=== PATIENT | female | born 1995 | race Caucasian/White ===

== ENCOUNTER 2019-01-20 00:12 | Emergency (ER) | payer OTHER, MEDICAID ==
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
[2019-01-20] MEDS ORDERED: DIPH,PERTUS(ACELL)TETVAC-LF 0.5 ML VIAL IM ONE (01:24)
[2019-01-20] MEDS ORDERED: KETOROLAC 30 MG/ML 1 ML VIAL IM STA (01:24)
[2019-01-20] MEDS ORDERED: DIAZEPAM 5 MG TAB PO STA (01:24)
--- NOTE | 2019-01-20 01:27 | XR ---
EXAM: XR Left Wrist Complete, 3 or More Views CLINICAL HISTORY: ITS.REASON XR Reason: Pain TECHNIQUE: Frontal, lateral and oblique views of the left wrist. COMPARISON: No relevant prior studies available. FINDINGS: Bones/joints: Unremarkable. No acute fracture. No dislocation. Soft tissues: Unremarkable. No radiopaque foreign body. IMPRESSION: No visualized fracture.
--- NOTE | 2019-01-20 01:48 | XR ---
EXAM: XR Chest, 2 Views CLINICAL HISTORY: ITS.REASON XR Reason: Pain TECHNIQUE: Frontal and lateral views of the chest. COMPARISON: No relevant prior studies available. FINDINGS: Lungs: Unremarkable. No consolidation. Pleural space: Unremarkable. No pneumothorax. Heart: Unremarkable. No cardiomegaly. Mediastinum: Unremarkable. Bones/joints: Unremarkable. IMPRESSION: No acute radiographic findings.
[2019-01-20 02:57] VITALS: BP 94/58; PULSE 68; RESP 18; TEMP 98
== END 2019-01-20 02:57 | disposition home or self-care (01) ==
LOC: EC 00:12
DX: T23.262A Burn of second degree of back of left hand, initial encounter (principal); S80.12XA Contusion of left lower leg, initial encounter; F17.200 Nicotine dependence, unspecified, uncomplicated; Z23 Encounter for immunization; V43.52XA Car driver injured in collision with other type car in traffic accident, initial encounter; Y92.411 Interstate highway as the place of occurrence of the external cause
CPT/HCPCS: 73110; 71046; 90715; 99284; 96372; 90471; J1885

== ENCOUNTER → 2020-04-09 | Outpatient (CLI) | payer MEDICAID | END | disposition home or self-care (01) | LOC: LABWHC1 07:21 | PROVIDERS: ATTEND Family Medicine | DX: Z20.828 Contact with and (suspected) exposure to other viral communicable diseases (principal) | CPT/HCPCS: 87635 ==

== ENCOUNTER 2021-07-06 01:42 | Emergency (ER) | payer MEDICAID ==
[2021-07-06 01:55] VITALS: BP 121/76; PULSE 95; RESP 20; TEMP 98.8
[2021-07-06 02:41] LABS: Appearance,Urine Turbid (Clear); Bacteria,Urine Rare /hpf; Bilirubin,Urine Negative (Negative); Blood,Urine Large (Negative); Color,Urine Dark Brown; Glucose,Urine (UA) Negative (Negative); Ketones,Urine Negative (Negative); Leukocyte Esterase,Urine Large (Negative); Mucus,Urine Many /hpf; Nitrite,Urine Negative (Negative); Protein,Urine 3+ (Negative); RBC,Urine >182 /hpf (0-5); Specific Gravity,Urine 1.022 (1.001-1.035); Squamous Epithelial Cell,Urine 14 /hpf (0-4); Urobilinogen,Urine <2.0 mg/dL (<2.0); WBC,Urine >182 /hpf (0-5)
[2021-07-06] MEDS ORDERED: SULFAMETHOX-TMP 800-160MG 1 EACH TAB PO STA (04:05)
[2021-07-06] MEDS ORDERED: PHENAZOPYRIDINE 100 MG TAB PO STA (04:05)
--- NOTE | 2021-07-06 04:07 | ED ---
Abdominal Pain HPI - General Chief Complaint: Abdominal Pain Stated Complaint: Abdominal Pain, dizziness Time Seen by Provider: 07/06/21 03:53 Source: patient Mode of arrival: ambulatory Limitations: no limitations - History of Present Illness MD Complaint: abdominal pain Onset/Timin -: days(s) Location: suprapubic Radiation: none Migration to: no migration Severity: mild Quality: cramping Consistency: constant Improves With: nothing Worsens With: other (Urination) Associated Symptoms: dysuria, hematuria - Related Data Previous Rx's Medication Instructions Recorded Ibuprofen [Motrin] 600 mg PO Q6HR PRN #30 tab 01/20/19 Methocarbamol [Robaxin-750] 750 mg PO TID #30 tablet 01/20/19 Phenazopyridine [Pyridium] 100 mg PO TID #6 tablet 07/06/21 Sulfamethox-Tmp 800-160Mg [Bactrim 1 each PO Q12HR #6 tab 07/06/21 Ds] Allergies Allergy/AdvReac Type Severity Reaction Status Date / Time No Known Allergies Allergy Verified 07/06/21 01:55 Review of Systems ROS Statement: Those systems with pertinent positive or pertinent negative responses have been documented in the HPI. ROS Other: All systems not noted in ROS Statement are negative. Constitutional: Denies: fever, chills Respiratory: Denies: cough, dyspnea Cardiovascular: Denies: chest pain, palpitations Gastrointestinal: Reports: abdominal pain. Denies: nausea, vomiting, diarrhea, constipation, melena, hematochezia Genitourinary: Reports: dysuria, frequency, hematuria. Denies: discharge, abnormal menses Musculoskeletal: Denies: back pain Skin: Denies: rash Neurological: Denies: headache, weakness, numbness Past Medical History Past Medical History: No Reported History History of Any Multi-Drug Resistant Organisms: None Reported Past Surgical History: No Surgical Hx Reported Past Psychological History: Depression Smoking Status: Never smoker, Vaper Past Alcohol Use History: Occasional Past Drug Use History: None Reported General Exam Limitations: no limitations General appearance: alert, in no apparent distress Head exam: Present: atraumatic, normocephalic Respiratory exam: Present: normal lung sounds bilaterally. Absent: respiratory distress, wheezes, rales, rhonchi, stridor Cardiovascular Exam: Present: regular rate, normal rhythm, normal heart sounds. Absent: systolic murmur, diastolic murmur, rubs, gallop GI/Abdominal exam: Present: soft. Absent: distended, tenderness, guarding, rebound, rigid, mass, pulsatile mass, hernia Back exam: Present: normal inspection. Absent: CVA tenderness (R), CVA tenderness (L) Neurological exam: Present: alert Skin exam: Present: warm, dry, intact, normal color. Absent: rash Course Vital Signs 07/06/21 01:53 Temperature 98.8 F Pulse Rate 95 Respiratory 20 Rate Blood Pressure 121/76 O2 Sat by Pulse 96 Oximetry Medical Decision Making - Lab Data Lab Results 07/06/21 07/06/21 Range/Units 02:05 02:05 Urine Color Dark Brown Urine Appearance Turbid H (Clear) Urine pH 6.0 (5.0-8.0) Ur Specific [place] 1.022 (1.001-1.035) Urine Protein 3+ H (Negative) Urine Glucose (UA) Negative (Negative) Urine Ketones Negative (Negative) Urine Blood Large H (Negative) Urine Nitrite Negative (Negative) Urine Bilirubin Negative (Negative) Urine Urobilinogen <2.0 (<2.0) mg/dL Ur Leukocyte Esterase Large H (Negative) Urine RBC >182 H (0-5) /hpf Urine WBC >182 H (0-5) /hpf Ur Squamous Epith Cells 14 H (0-4) /hpf Urine Bacteria Rare H (None) /hpf Urine Mucus Many H (None) /hpf Urine HCG, Qual Not Detected (Not Detectd) Disposition Clinical Impression: Urinary tract infection Disposition: HOME SELF-CARE Condition: Good Instructions (If sedation given, give patient instructions): Urinary Tract Infection in Women (ED) Prescriptions: Sulfamethox-Tmp 800-160Mg [Bactrim Ds] 1 each PO Q12HR #6 tab Phenazopyridine [Pyridium] 100 mg PO TID #6 tablet Is patient prescribed a controlled substance at d/c from ED?: No Referrals: None,Stated [Primary Care Provider] - 1-2 days
== END 2021-07-06 04:42 | disposition home or self-care (01) ==
LOC: EC 01:42
DX: N39.0 Urinary tract infection, site not specified (principal); F32.9 Major depressive disorder, single episode, unspecified; F17.290 Nicotine dependence, other tobacco product, uncomplicated
CPT/HCPCS: 81001; 81025; 87086; 99284

== ENCOUNTER → 2021-07-21 | Outpatient (CLI) | payer MEDICAID ==
[2021-07-21 21:18] LABS: HCT 41.5 % (37.2-46.3); MCH 31.5 pg (27.0-32.0); MCHC 33.7 g/dL (32.0-37.0); MCV 93.5 fL (80.0-97.0); Mean Platelet Volume 9.7 fL (9.5-12.2); Platelet Count 309 X 10*3/uL (140-440); RBC 4.44 X 10*6/uL (4.10-5.20); WBC 5.55 X 10*3/uL (4.50-10.00)
[2021-07-23 00:25] LABS: African American GFR (CKD) 118.8 (60.0-200.0); Albumin 4.5 g/dL (3.80-4.90); Albumin/Globulin Ratio 1.67 (1.60-3.17); Anion Gap 14.6 mmol/L (4.00-12.00); BUN/Creat Ratio 12.5 Ratio (12.00-20.00); Calcium 9.9 mg/dL (8.7-10.3); Carbon Dioxide 20.4 mmol/L (21.6-31.8); Globulin 2.7 g/dL (1.6-3.3); Non-African American GFR(CKD) 102.5 (60.0-200.0); Potassium 4.3 mmol/L (3.5-5.5); Total Protein 7.2 g/dL (6.2-8.2)
[2021-07-23 01:08] LABS: Total Bilirubin 0.6 mg/dL (0.3-1.2)
== END | disposition home or self-care (01) ==
LOC: LABWHC1 14:09
PROVIDERS: ATTEND Internal Medicine
DX: E55.9 Vitamin D deficiency, unspecified (principal); F41.9 Anxiety disorder, unspecified; M79.10 Myalgia, unspecified site
CPT/HCPCS: 36415; 80053; 82306; 82607; 82746; 84443; 85027

== ENCOUNTER 2021-12-22 17:42 | Emergency (ER) | payer BC, MEDICAID ==
[2021-12-22] MEDS ORDERED: IBUPROFEN 400 MG TAB PO STA (18:03)
[2021-12-22] MEDS ORDERED: ACETAMINOPHEN TAB 500 MG TAB PO STA (18:03)
[2021-12-22 18:12] VITALS: BP 108/72; PULSE 91; RESP 16; TEMP 97.6
--- NOTE | 2021-12-22 18:50 | ED ---
Fall HPI - General Chief Complaint: Fall Stated Complaint: Fall/Head Injury Time Seen by Provider: 12/22/21 17:53 Source: patient Mode of arrival: wheelchair - History of Present Illness Initial Comments: This is a pleasant 26-year-old female presents to emergency department after slipping down her steps and falling. In the process twisting her ankle and striking the back of her head. Patient also complaining of some pain to the right lumbar paraspinal area. There is no loss of consciousness, she denies any vision or hearing disturbances. No numbness or tingling. No neck pain. Recalls the entire event. No nausea or vomiting. Not on blood thinners. No history of blood dyscrasias. Patient was sent by urgent care for evaluation. Patient mostly complaining of pain to the anterior aspect of her left ankle. Pain is exacerbated by movement of the ankle as well as palpation. Patient is able to ambulate. Mild increase of pain with moving the lumbar spine. - Related Data Previous Rx's Medication Instructions Recorded Ibuprofen [Motrin] 600 mg PO Q6HR PRN #30 tab 01/20/19 Methocarbamol [Robaxin-750] 750 mg PO TID #30 tablet 01/20/19 Phenazopyridine [Pyridium] 100 mg PO TID #6 tablet 07/06/21 Sulfamethox-Tmp 800-160Mg [Bactrim 1 each PO Q12HR #6 tab 07/06/21 Ds] Acetaminophen [Tylenol] 500 mg PO Q4-6H PRN #24 tab 12/22/21 Ibuprofen [Motrin] 600 mg PO Q8HR PRN #30 tab 12/22/21 Allergies Allergy/AdvReac Type Severity Reaction Status Date / Time No Known Allergies Allergy Verified 12/22/21 17:47 Review of Systems ROS Statement: Those systems with pertinent positive or pertinent negative responses have been documented in the HPI. ROS Other: All systems not noted in ROS Statement are negative. Past Medical History Past Medical History: No Reported History Additional Past Medical History / Comment(s): borderline personality disorder History of Any Multi-Drug Resistant Organisms: None Reported Past Surgical History: No Surgical Hx Reported Past Psychological History: ADD/ADHD, Anxiety, Depression, PTSD Smoking Status: Former smoker, Vaper Past Alcohol Use History: Rare Past Drug Use History: None Reported General Exam - General Exam Comments Initial Comments: Patient in no distress, does not appear to be ill or toxic. Limitations: no limitations General appearance: alert, in no apparent distress Head exam: Present: atraumatic, normocephalic, normal inspection, other (No evidence of significant head injury. No step-off. No abrasion. No laceration. No crepitus.) Eye exam: Present: normal appearance, PERRL, EOMI. Absent: scleral icterus, conjunctival injection, periorbital swelling ENT exam: Present: normal exam, normal oropharynx, mucous membranes moist. Absent: mucous membranes dry Neck exam: Present: normal inspection, full ROM. Absent: tenderness, meningismus, lymphadenopathy Respiratory exam: Present: normal lung sounds bilaterally. Absent: respiratory distress, wheezes, rales, rhonchi, stridor Cardiovascular Exam: Present: regular rate, normal rhythm, normal heart sounds. Absent: systolic murmur, diastolic murmur, rubs, gallop, clicks GI/Abdominal exam: Present: soft, normal bowel sounds. Absent: distended, tenderness, guarding, rebound, rigid Extremities exam: Present: normal inspection, full ROM, normal capillary refill, other (Patient has full range of motion regarding left ankle. There is a superficial abrasion. No crepitus. No other break in skin integrity. Pulses intact. Capillary refill less than 2 seconds). Absent: tenderness, pedal edema, joint swelling, calf tenderness Back exam: Present: normal inspection, full ROM, tenderness, paraspinal tenderness, other (Minimal tenderness to the right lumbar paraspinal area. No midline tenderness. No break in skin integrity. No rash or lesion. No crepitus. Range of motion essentially full.). Absent: CVA tenderness (R), CVA tenderness (L), muscle spasm, vertebral tenderness, rash noted Neurological exam: Present: alert, oriented X3, CN II-XII intact, normal gait Expanded Patient oriented to: Present: person Speech: Present: fluid speech, expressive aphasia, anomia Cerebellar function: Finger to Nose: Normal, Heel to Valero: Normal, Romberg: Normal Eye Response: (4) open spontaneously Motor Response: (6) obeys commands Verbal Response: (5) oriented Jose Roberto Total: 15 Psychiatric exam: Present: normal affect, normal mood Skin exam: Present: warm, dry, intact, normal color. Absent: rash Course Vital Signs 12/22/21 12/22/21 17:47 18:10 Temperature 98.7 F 97.6 F Pulse Rate 100 91 Respiratory 20 16 Rate Blood Pressure 134/76 108/72 O2 Sat by Pulse 100 100 Oximetry Medical Decision Making - Medical Decision Making No CT of the head indicated per [place] CT/C-spine rules. Patient was told to return to the ER for any signs or symptoms worsen. Told to return immediately if any other problems arise. All questions answered. Treatment plan discussed. Patient in agreement Disposition Clinical Impression: Fall, Closed head injury, Contusion of left ankle, Abrasion, left ankle, initial encounter, Contusion of lower back Disposition: HOME SELF-CARE Condition: Good Instructions (If sedation given, give patient instructions): Head Injury (ED), Contusion in Adults (ED), Abrasion (ED) Additional Instructions: Follow-up with your regular physician as directed. Return to the ER immediately if any symptoms worsen, new symptoms arise, or any other problems develop. Prescriptions: Ibuprofen [Motrin] 600 mg PO Q8HR PRN #30 tab PRN Reason: Pain Acetaminophen [Tylenol] 500 mg PO Q4-6H PRN #24 tab PRN Reason: Pain Is patient prescribed a controlled substance at d/c from ED?: No Referrals: Aneudy James MD [Primary Care Provider] - 12/26/21 Time of Disposition: 19:20
--- NOTE | 2021-12-22 19:09 | XR ---
EXAMINATION TYPE: XR lumbar spine 2 or 3V DATE OF EXAM: 12/22/2021 6:40 PM INDICATION: Patient age:Female; 26 years old; Reason for study: Low back injury/pain; COMPARISON: None TECHNIQUE: The lumbar spine was examined in 2 views. FINDINGS: No evidence of any acute osseous pathology. No evidence of loss of vertebral body height i s seen. There is normal alignment of the lumbar vertebral bodies. There is moderate stool seen throug hout the abdomen. IMPRESSION: No acute process.
--- NOTE | 2021-12-22 19:12 | XR ---
EXAMINATION TYPE: XR ankle complete LT DATE OF EXAM: 12/22/2021 6:40 PM INDICATION: Patient age:Female; 26 years old; Reason for study: Injury/pain; COMPARISON: None TECHNIQUE: The left ankle is imaged in 3 projections. FINDINGS: There is no evidence of acute osseous pathology. The joint spaces are well-preserved without evidenc e of subluxation or dislocation. Kager's fat pad is intact. Soft tissues are within normal limits. No radiopaque foreign bodies are identified. IMPRESSION: 1. No evidence of acute fracture.
== END 2021-12-22 19:45 | disposition home or self-care (01) ==
LOC: EC 17:42
DX: S90.02XA Contusion of left ankle, initial encounter (principal); S30.0XXA Contusion of lower back and pelvis, initial encounter; S09.90XA Unspecified injury of head, initial encounter; Z87.891 Personal history of nicotine dependence; F32.A Depression, unspecified; F41.9 Anxiety disorder, unspecified; Z79.1 Long term (current) use of non-steroidal anti-inflammatories (NSAID); Z79.899 Other long term (current) drug therapy; W10.9XXA Fall (on) (from) unspecified stairs and steps, initial encounter; X50.1XXA Overexertion from prolonged static or awkward postures, initial encounter
CPT/HCPCS: 72100; 99284

== ENCOUNTER 2022-08-04 16:41 | Emergency (ER) | payer BC, OTHER ==
[2022-08-04 17:07] VITALS: RESP 20
[2022-08-04 17:25] VITALS: BP 117/74; PULSE 100; TEMP 98.9
[2022-08-04] MEDS ORDERED: LIDOCAINE 1% INJ 10MG/ML (20 ML MDV) SQ ONE (17:39)
--- NOTE | 2022-08-04 17:47 | ED ---
Wound/Laceration HPI - General Chief Complaint: Wound/Laceration Stated Complaint: R knee laceration Time Seen by Provider: 08/04/22 17:38 Source: patient, RN notes reviewed, old records reviewed Mode of arrival: ambulatory Limitations: no limitations - History of Present Illness Initial Comments: This is a plesant, well-appearing 26 year old female that presents emergency room with a laceration to her right knee. Patient states that she was carrying a mirror down the stairs and she tripped and fell broke the mirror which caused laceration to her knee. She does have full range of motion. States tetanus shot is up-to-date. She took Motrin prior to arrival. She denies any other injury. -: hour(s) Extremity Location: Right: Knee (3cm laceration) Place: home Patient Tetanus UTD: Yes Context: accidental Associated Symptoms: none Treatments Prior to Arrival: other (motrin) - Related Data Home Medications Medication Instructions Recorded Confirmed Ascorbic Acid [Vitamin C] 1,000 mg PO DAILY 12/22/21 12/22/21 Atomoxetine HCl [Strattera] 60 mg PO DAILY 12/22/21 12/22/21 Cholecalciferol (Vitamin D3) 125 mcg PO DAILY 12/22/21 12/22/21 [Vitamin D3 (125 MCG = 5,000 IU)] Glucosam/Tanvir-Msm1/C/Rd/Bosw 1 tab PO DAILY 12/22/21 12/22/21 [Glucosamine-Chondroitin Tablet] Melatonin 3 mg PO HS PRN 12/22/21 12/22/21 OLANZapine [ZyPREXA] 2.5 mg PO HS 12/22/21 12/22/21 Potassium Gluconate [Potassium 99 mg PO DAILY 12/22/21 12/22/21 Gluconate ER] Vitamin B Complex 1 cap PO DAILY 12/22/21 12/22/21 buPROPion XL [Wellbutrin XL] 450 mg PO DAILY 12/22/21 12/22/21 clonazePAM [KlonoPIN] 0.5 - 1 mg PO BID PRN 12/22/21 12/22/21 norethindrone-e.estradioL-iron 1 tab PO HS 12/22/21 12/22/21 [Key Fe 1.5-30 Tablet] Previous Rx's Medication Instructions Recorded Acetaminophen [Tylenol] 500 mg PO Q4-6H PRN #24 tab 12/22/21 Ibuprofen [Motrin] 600 mg PO Q8HR PRN #30 tab 12/22/21 Allergies Allergy/AdvReac Type Severity Reaction Status Date / Time No Known Allergies Allergy Verified 12/22/21 19:34 Review of Systems ROS Statement: Those systems with pertinent positive or pertinent negative responses have been documented in the HPI. ROS Other: All systems not noted in ROS Statement are negative. Past Medical History Past Medical History: No Reported History Additional Past Medical History / Comment(s): borderline personality disorder History of Any Multi-Drug Resistant Organisms: None Reported Past Surgical History: No Surgical Hx Reported Past Psychological History: ADD/ADHD, Anxiety, Depression, PTSD Smoking Status: Former smoker, Vaper Past Alcohol Use History: Rare Past Drug Use History: None Reported General Exam Limitations: no limitations General appearance: alert, in no apparent distress Head exam: Present: atraumatic, normocephalic, normal inspection Eye exam: Present: normal appearance. Absent: scleral icterus, conjunctival injection Respiratory exam: Present: normal lung sounds bilaterally. Absent: respiratory distress, wheezes, rales, rhonchi, stridor, chest wall tenderness, accessory muscle use Cardiovascular Exam: Present: tachycardia, normal heart sounds Right Hip exam: Present: full ROM. Absent: tenderness Upper Leg exam: Present: full ROM. Absent: tenderness Knee exam: Present: tenderness, abrasion, laceration, full knee extension. Absent: swelling, deformity Lower Leg exam: Present: full ROM. Absent: tenderness, swelling Neurovascular tendon exam: Present: no vascular compromise. Absent: abnormal cap refill, extremity cold to touch, pallor, foot drop Neurological exam: Present: alert, oriented X3 Psychiatric exam: Present: normal affect, normal mood Skin exam: Present: warm, dry, intact, normal color. Absent: cyanosis, diaphoretic, petechiae, pallor Course Vital Signs 08/04/22 08/04/22 17:04 17:21 Temperature 98.5 F 98.9 F Pulse Rate 110 H 100 Respiratory 20 20 Rate Blood Pressure 144/80 117/74 O2 Sat by Pulse 100 99 Oximetry Procedures - Laceration Laceration #1 Consent Obtained: verbal consent Indication: laceration Site: lower extremity (right knee) Description: irregular Depth: simple, single layer Anesthetic Used: lidocaine 1% Anesthesia Technique: local infiltration Pre-repair: irrigated extensively Type of Sutures: nylon Size of Sutures: 4-0 Number of Sutures: 5 Technique: simple, interrupted Patient Tolerated Procedure: well, no complications Medical Decision Making - Medical Decision Making Wound was irrigated with saline. X-ray shows no evidence of foreign body. She does have full range of motion. Wound was approximated with 5 sutures and bacitracin dressing applied. She was directed to have sutures removed in 10 days and return if any signs of infection. She states her tetanus shot is up-to-date. She is agreeable to this plan of care. Case discussed with Dr. Muse. Disposition Clinical Impression: Laceration Disposition: HOME SELF-CARE Condition: Good Instructions (If sedation given, give patient instructions): Care For Your Stitches (ED), Laceration (ED) Additional Instructions: Keep wound clean and put Neosporin bandage on twice a day. Sutures to be removed in 10 days. Return to the emergency room with any new or concerning sym ptoms including signs of infection, redness, drainage or fevers. Is patient prescribed a controlled substance at d/c from ED?: No Referrals: None,Stated [Primary Care Provider] - 1-2 days Time of Disposition: 18:26
--- NOTE | 2022-08-04 18:04 | XR ---
EXAMINATION TYPE: XR knee limited RT DATE OF EXAM: 08/04/2022 COMPARISON: NONE HISTORY: Knee pain TECHNIQUE: 2 views FINDINGS: There is no sign of fracture nor dislocation. Joint spaces are normal. No sign of radiopaqu e foreign body. No sign of joint effusion. IMPRESSION: No radiopaque foreign body seen.
[2022-08-04] MEDS ORDERED: BACITRACIN OINT 1 EACH PACKET TOPICAL ONE (18:23)
== END 2022-08-04 19:03 | disposition home or self-care (01) ==
LOC: EC 16:41
DX: S81.011A Laceration without foreign body, right knee, initial encounter (principal); Z87.891 Personal history of nicotine dependence; W01.110A Fall on same level from slipping, tripping and stumbling with subsequent striking against sharp glass, initial encounter; Y92.009 Unspecified place in unspecified non-institutional (private) residence as the place of occurrence of the external cause
CPT/HCPCS: 73560; 99283; 12002; J2001

== ENCOUNTER → 2024-07-19 | Outpatient (CLI) | payer BC, OTHER ==
[2024-07-20 12:16] LABS: Basophils # (A) 0.02 X 10*3/uL (0.00-0.10); Basophils % (A) 0.2 %; Eosinophils # (A) 0.05 X 10*3/uL (0.04-0.35); Eosinophils % (A) 0.5 %; HCT 39.4 % (37.2-46.3); HGB 13.4 g/dL (12.0-15.0); Lymphocytes # (A) 3.24 X 10*3/uL (0.90-5.00); Lymphocytes % (A) 33.2 %; MCH 31.2 pg (27.0-32.0); MCV 91.8 FL (80.0-97.0); Monocytes % (A) 5.1 %; NRBC Per 100 WBC 0 X 10*3/uL (0.00-0.01); Neutrophils # (A) 5.91 X 10*3/uL (1.80-7.70); Neutrophils % (A) 60.7 %; Platelet Count 404 X 10*3/uL (140-440); RBC 4.29 X 10*6/uL (4.10-5.20); RDW 12.2 % (11.5-14.5); WBC 9.75 X 10*3/uL (4.50-10.00)
[2024-07-22 14:58] LABS: HSV I IgG Interp POSITIVE; HSV II IgG Interp POSITIVE
== END | disposition home or self-care (01) ==
LOC: LABPAT 11:45
PROVIDERS: ATTEND Obstetrics & Gynecology
DX: Z01.812 Encounter for preprocedural laboratory examination (principal); Z11.3 Encounter for screening for infections with a predominantly sexual mode of transmission
CPT/HCPCS: 85025; 86695; 86696

== ENCOUNTER 2024-07-25 06:24 | Day surgery (SDC) | payer BC, OTHER ==
[2024-07-23 16:28] VITALS: BMI 38.4
[~2024-07-25 06:24] MED LIST: LIDOCAINE 1% (10MG/ML) FOR IV START INTRADERMA PRN; Pre Op ABX Message 1 EACH MISC MISCELLANE ONE
[2024-07-25] MEDS ORDERED: MORPHINE SULFATE 2 MG/ML SYRINGE IV PRN (07:00)
[2024-07-25] MEDS: IV FLUID CONTINUATION 1,000 ML IV ONE ×2 (07:13→07:29)
[2024-07-25] MEDS: LACTATED RINGERS 1,000 ML IV SCH (07:15)
--- NOTE | 2024-07-25 07:19 | P.HPOB ---
History of Present Illness H&P Date: 07/25/24 Chief Complaint: family planning 28 year old G0 presents for laparoscopic tubal ligation. Review of Systems All systems: negative Constitutional: Denies chills, Denies fever Eyes: denies blurred vision, denies pain Ears, nose, mouth and throat: Denies headache, Denies sore throat Cardiovascular: Denies chest pain, Denies shortness of breath Respiratory: Denies cough Gastrointestinal: Denies abdominal pain, Denies diarrhea, Denies nausea, Denies vomiting Genitourinary: Denies dysuria, Denies hematuria Musculoskeletal: Denies myalgias Integumentary: Denies pruritus, Denies rash Neurological: Denies numbness, Denies weakness Psychiatric: Denies anxiety, Denies depression Endocrine: Denies fatigue, Denies weight change Past Medical History Past Medical History: Hearing Disorder / Deafness Additional Past Medical History / Comment(s): Hx tremors in whole body in 2021, was on Keto diet, resolved since quit Keto diet. Hx difficulty with speech/motor control issue about 1 1/2 yrs ago, no diagnosis. Tinnitus. History of Any Multi-Drug Resistant Organisms: None Reported Past Surgical History: No Surgical Hx Reported Additional Past Surgical History / Comment(s): [place] teeth extracted. Past Anesthesia/Blood Transfusion Reactions: No Reported Reaction Smoking Status: Former smoker, Vaper - Past Family History Mother Family Medical History: No Reported History Medications and Allergies Home Medications Medication Instructions Recorded Confirmed Type Atomoxetine HCl [Strattera] 80 mg PO HS 07/23/24 07/25/24 History Cholecalciferol [Vitamin D3 (25 25 mcg PO DAILY 07/23/24 07/25/24 History Mcg = 1000 Iu)] Lion's Mark (Unknown Dose) 1 tab PO DAILY 07/23/24 07/25/24 History Magnesium (Unknown Dose) 1 tab PO DAILY 07/23/24 07/25/24 History Melatonin [Melatonin ER] 10 mg PO HS 07/23/24 07/25/24 History Pyridoxine HCl (Vitamin B6) 100 mg PO DAILY 07/23/24 07/25/24 History [Vitamin B-6] buPROPion [Wellbutrin] 100 mg PO 1330 07/23/24 07/25/24 History buPROPion [Wellbutrin] 200 mg PO QAM 07/23/24 07/25/24 History busPIRone HCL 10 mg PO BID 07/23/24 07/25/24 History guanFACINE [Tenex] 1 mg PO HS 07/23/24 07/25/24 History hydrOXYzine HCL 25 mg PO TID PRN 07/23/24 07/25/24 History traZODone HCL 100 mg PO HS 07/23/24 07/25/24 History Allergies Allergy/AdvReac Type Severity Reaction Status Date / Time banana Allergy Itching Verified 07/25/24 06:51 pineapple Allergy Itching Verified 07/25/24 06:51 Exam Osteopathic Statement: *. No significant issues noted on an osteopathic structural exam other than those noted in the History and Physical/Consult. Intake and Output 07/24/24 07/25/24 07/25/24 22:59 06:59 14:59 Other: Weight 95.7 kg Heart: Regular rate and rhythm Lungs: Clear to auscultation bilaterally Abdomen: Soft, nontender Extremities: Negative Homans sign Assessment and Plan (1) Family planning Current Visit: Yes Status: Acute Code(s): Z30.09 - ENCOUNTER FOR OTH GENERAL CNSL AND ADVICE ON CONTRACEPTION SNOMED Code(s): 994515341 Plan: 1. Laparoscopic tubal ligation
[2024-07-25] MEDS: ONDANSETRON 4 MG/2 ML VIAL IVP ONE (07:22)
[2024-07-25] MEDS: DEXAMETHASONE SOD PHOSPHATE 4 MG/ML 1 ML VIAL IV ONE (07:22)
[2024-07-25] MEDS ORDERED: PROPOFOL 10 MG/ML 20 ML VIAL IV ONE (07:25)
[2024-07-25] MEDS ORDERED: ACETAMINOPHEN IV (For NPO) 1,000 MG/100 ML VIAL ONE (07:25)
[2024-07-25] MEDS ORDERED: SUCCINYLCHOLINE CHLORIDE 200 MG/10 ML VIAL IV ONE (07:25)
[2024-07-25] MEDS ORDERED: ROCURONIUM 10 MG/ML (5 ML VIAL) IV ONE (07:25)
[2024-07-25] MEDS ORDERED: SUGAMMADEX SODIUM 200 MG/2 ML SDV IV ONE (07:25)
[2024-07-25] MEDS ORDERED: MIDAZOLAM 2 MG/2 ML VIAL ONE (07:25)
[2024-07-25] MEDS: MIDAZOLAM 2 MG/2 ML VIAL IV PRN (07:25)
[2024-07-25] MEDS ORDERED: LIDOCAINE 1% INJ 10MG/ML (20 ML MDV) ONE (07:25)
[2024-07-25] MEDS ORDERED: KETAMINE HCL IN 0.9 % NACL 50 MG/5 ML SYRINGE ONE (07:25)
[2024-07-25] MEDS: FAMOTIDINE 20 MG/2 ML VIAL IVP ONE (07:25)
[2024-07-25] MEDS ORDERED: KETOROLAC 15 MG/ML 1 ML VIAL ONE (07:25)
[2024-07-25] MEDS: BUPIVACAINE (PF) 0.25% 30 ML VIAL SQ ONE ×3 (07:47→08:00)
[2024-07-25] MEDS: LACTATED RINGERS 1,000 ML IV ONE (08:07)
--- NOTE | 2024-07-25 08:22 | P.OP ---
Date of Procedure: 07/25/24 Preoperative Diagnosis: 1. family planning Postoperative Diagnosis: 1. family planning Procedure(s) Performed: laproscopic tubal ligation Anesthesia: RADAMES Surgeon: Shelbie Solitario Estimated Blood Loss (ml): 3 IV fluids (ml): 400 Urine output (ml): 10 Pathology: none sent Condition: stable Disposition: PACU Operative Findings: normal uterus, tubes and ovaries Description of Procedure: Patient was taken to the operating room where general anesthesia was obtained without difficulty. She was prepped and draped in normal sterile fashion in the dorsal lithotomy position, legs placed in the Shmuel stirrups. Bladder drained of all urine. Hutchinson speculum placed in the vagina and the anterior lip the cervix was grasped with single-tooth tenaculum. The uterus is sounded to 7 cm and the kroner manipulator was placed the cervix was dilated to #6 Hegar dilator. Attention was then turned to the abdomen and gloves were changed. A 10 mm infraumbilical incision was made the scalpel and 10 mm optical trocar was placed under direct visualization. A 5 mm suprapubic Incision was made and a 5 mm optical trocar was placed under direct visualization. Survey of the pelvis revealed normal uterus tubes and ovaries. The left fallopian tube was grasped with a Kleppinger and fulgurated 2-3 cm on this side in the ampullar portion. The right fallopian tube was grasped with a Kleppinger and fulgurated 2-3 cm in the ampullar portion. All instruments were then removed from the abdomen and vagina. The 10 mm infraumbilical incision was closed with 0 Vicryl and the fascial layer and then 4-0 Vicryl in a subcuticular fashion. The 5 mm incision was closed with 4-0 Vicryl in a subcuticular fashion. Patient tolerated procedure well, sponge and instrument counts correct 2 and she was taken to recovery room in stable condition.
[2024-07-25 08:41] VITALS: TEMP 97.4
[2024-07-25] MEDS: HYDROmorphone 0.5 MG/0.5 ML SYRINGE IVP PRN (08:51)
[2024-07-25] MEDS: HYDROcodone/APAP 7.5-325MG 1 EACH TAB PO ONE (09:53)
[2024-07-25 09:55] VITALS: RESP 16
[2024-07-25 09:56] VITALS: BP 115/73; PULSE 83
== END 2024-07-25 10:43 | disposition home or self-care (01) ==
LOC: OR 06:24
PROVIDERS: ATTEND Obstetrics & Gynecology
DX: Z30.2 Encounter for sterilization (principal); F90.9 Attention-deficit hyperactivity disorder, unspecified type; F41.8 Other specified anxiety disorders; F43.10 Post-traumatic stress disorder, unspecified; Z91.018 Allergy to other foods; Z87.891 Personal history of nicotine dependence; Z79.899 Other long term (current) drug therapy
CPT/HCPCS: 81025

== ENCOUNTER 2025-03-27 02:12 | Emergency (ER) | payer BC, OTHER ==
--- NOTE | 2025-03-27 03:32 | ED ---
Upper Extremity HPI - General Chief Complaint: Extremity Injury, Upper Stated Complaint: R Wrist Pain Time Seen by Provider: 03/27/25 02:31 Source: patient Mode of arrival: ambulatory Limitations: no limitations - History of Present Illness Initial Comments: This patient is a 29-year-old woman presenting for evaluation of right wrist pain. She states that it has been present approximately 2 weeks. She states that she thinks that it was initially twisted but does not recall specific injury. Patient denies weakness or numbness. MD Complaint: Injury to:: right, wrist Onset/Timin -: week(s) Other Extremity Injury: Wrist: Right Handedness: right Place: home Improves With: none Worsens With: movement of extremity Associated Symptoms: denies other symptoms - Related Data Home Medications Medication Instructions Recorded Confirmed Atomoxetine HCl [Strattera] 80 mg PO HS 07/23/24 07/25/24 Cholecalciferol [Vitamin D3 (25 25 mcg PO DAILY 07/23/24 07/25/24 Mcg = 1000 Iu)] Lion's Mark (Unknown Dose) 1 tab PO DAILY 07/23/24 07/25/24 Magnesium (Unknown Dose) 1 tab PO DAILY 07/23/24 07/25/24 Melatonin [Melatonin Tr] 10 mg PO HS 07/23/24 07/25/24 Pyridoxine HCl (Vitamin B6) 100 mg PO DAILY 07/23/24 07/25/24 [Vitamin B-6] buPROPion [Wellbutrin] 100 mg PO 1330 07/23/24 07/25/24 buPROPion [Wellbutrin] 200 mg PO QAM 07/23/24 07/25/24 busPIRone HCL 10 mg PO BID 07/23/24 07/25/24 guanFACINE [Tenex] 1 mg PO HS 07/23/24 07/25/24 hydrOXYzine HCL 25 mg PO TID PRN 07/23/24 07/25/24 traZODone HCL 100 mg PO HS 07/23/24 07/25/24 Previous Rx's Medication Instructions Recorded Ibuprofen [Motrin] 600 mg PO Q8HR PRN #20 tab 03/27/25 Allergies Allergy/AdvReac Type Severity Reaction Status Date / Time banana Allergy Itching Verified 03/27/25 02:20 pineapple Allergy Itching Verified 03/27/25 02:20 tree nut [Nut] Allergy Itching Verified 03/27/25 02:20 Review of Systems ROS Statement: Those systems with pertinent positive or pertinent negative responses have been documented in the HPI. ROS Other: All systems not noted in ROS Statement are negative. Constitutional: Denies: fever Musculoskeletal: Reports: as per HPI, arthralgia Skin: Denies: rash Neurological: Denies: weakness, numbness, paresthesias Past Medical History Past Medical History: Hearing Disorder / Deafness Additional Past Medical History / Comment(s): Hx tremors in whole body in 2021, was on Keto diet, resolved since quit Keto diet. Hx difficulty with speech/motor control issue about 1 1/2 yrs ago, no diagnosis. Tinnitus. History of Any Multi-Drug Resistant Organisms: None Reported Past Surgical History: No Surgical Hx Reported Additional Past Surgical History / Comment(s): [place] teeth extracted. Past Anesthesia/Blood Transfusion Reactions: No Reported Reaction Past Psychological History: ADD/ADHD, Anxiety, Depression, PTSD Smoking Status: Former smoker, Vaper Past Alcohol Use History: Rare Past Drug Use History: None Reported - Past Family History Mother Family Medical History: No Reported History General Exam Limitations: no limitations General appearance: alert, in no apparent distress Cardiovascular Exam: Present: other (Normal radial and ulnar pulse. Good capillary refill) Extremities exam: Present: normal inspection, tenderness, normal capillary refill. Absent: full ROM Right Upper Arm exam: Present: normal inspection, full ROM. Absent: tenderness, s welling Elbow exam: Present: normal inspection, full ROM. Absent: tenderness, swelling Forearm Wrist exam: Present: tenderness. Absent: full ROM, swelling, abrasion, laceration, ecchymosis, deformity, crepitus, dislocation, erythema, tenderness over anatomical snuff box, pain with axial thumb loading Hand Wrist exam: Present: normal inspection, full ROM. Absent: tenderness, swelling Vascular: Present: normal capillary refill. Absent: vascular compromise, pulse deficit radial art, pulse deficit ulnar art, pulse deficit brachial art Neurological exam: Present: alert. Absent: motor sensory deficit Skin exam: Present: warm, dry, intact, normal color. Absent: rash Course Vital Signs 03/27/25 03/27/25 02:16 03:45 Temperature 98 F 98.1 F Pulse Rate 104 H 75 Respiratory 20 18 Rate Blood Pressure 130/84 110/79 O2 Sat by Pulse 97 98 Oximetry Medical Decision Making - Medical Decision Making The patient had x-ray of the right wrist that I interpreted as negative for acute fracture, dislocation, foreign body. Was pt. sent in by a medical professional or institution (ROBERTO CARLOS Kendall, COSMETICS DEMONSTRATOR, urgent care, hospital, or long term...) When possible be specific @ -[No] Did you speak to anyone other than the patient for history (EMS, parent, family, police, friend...)? What history was obtained from this source @ -[No] Did you review nursing and triage notes (agree or disagree)? Why? @ -[I reviewed and agree with nursing and triage notes] Were old charts reviewed (outside hosp., previous admission, EMS record, old E KG, old radiological studies, urgent care reports/EKG's, long term records)? Report findings @ -[No old charts were reviewed] Differential Diagnosis (chest pain, altered mental status, abdominal pain women, abdominal pain men, vaginal bleeding, weakness, fever, dyspnea, syncope, headache, dizziness, GI bleed, back pain, seizure, CVA, palpatations, mental health, musculoskeletal)? @ -[Differential Musculoskeletal Muscular strain, contusion, ligament sprain, fracture, arthritis, septic arthritis, bursitis, cellulitis, muscle spasm, nerve compression, DVT, arterial occlusion, herpes zoster, electrolyte abnormality, tumor.... This is not meant to be in all inclusive list EKG interpreted by me (3pts min.). @ -[As above] X-rays interpreted by me (1pt min.). @ -[I interpreted as above CT interpreted by me (1pt min.). @ -[None done] U/S interpreted by me (1pt. min.). @ -[None done] What testing was considered but not performed or refused? (CT, X-rays, U/S, labs)? Why? @ -[None] What meds were considered but not given or refused? Why? @ -[None] Did you discuss the management of the patient with other professionals (professionals i.e. ROBERTO CARLOS Kendall, COSMETICS DEMONSTRATOR, lab, RT, psych nurse, licensed master social worker, organ fixer, teacher, radio electronics officer, manager of case management)? Give summary @ -[No] Was smoking cessation discussed for >3mins.? @ -[No] Was critical care preformed (if so, how long)? @ -[No] Were there social determinants of health that impacted care today? How? (Homelessness, low income, unemployed, alcoholism, drug addiction, transportation, low edu. Level, literacy, decrease access to med. care, group home, rehab)? @ -[No] Was there de-escalation of care discussed even if they declined (Discuss DNR or withdrawal of care, Hospice)? DNR status @ -[No] What co-morbidities impacted this encounter? (DM, HTN, Smoking, COPD, CAD, Cancer, CVA, ARF, Chemo, Hep., AIDS, mental health diagnosis, sleep apnea, morbid obesity)? @ -[None] Was patient admitted / discharged? Hospital course, mention meds given and route, prescriptions, significant lab abnormalities, going to OR and other pertinent info. @ -[Patient is a 29-year-old woman presenting with right wrist injury. The patient did have marked tenderness therefore x-ray studies are ordered which are unremarkable. Discussed appropriate conservative care as well as appropriate further care and return parameters Undiagnosed new problem with uncertain prognosis? @ -[No] Drug Therapy requiring intensive monitoring for toxicity (Heparin, Nitro, Insulin, Cardizem)? @ -[No] Were any procedures done? @ -[No] Diagnosis/symptom? @ -[Acute right wrist sprain Acute, or Chronic, or Acute on Chronic? @ -[Acute Uncomplicated (without systemic symptoms) or Complicated (systemic symptoms)? @ -[Uncomplicated Side effects of treatment? @ -[No] Exacerbation, Progression, or Severe Exacerbation? @ -[No] Poses a threat to life or bodily function? How? (Chest pain, [place], [place], pneumonia, PE, COPD, DKA, ARF, appy, cholecystitis, CVA, Diverticulitis, Homicidal, Suicidal, threat to staff... and all critical care pts) @ -[No] All treatments are based on ideal body weight as in ED triage Disposition Clinical Impression: Wrist sprain Disposition: HOME SELF-CARE Condition: Good Instructions (If sedation given, give patient instructions): Wrist Sprain (ED) Prescriptions: Ibuprofen [Motrin] 600 mg PO Q8HR PRN #20 tab PRN Reason: Pain Is patient prescribed a controlled substance at d/c from ED?: No Referrals: Ruben Duarte MD [Primary Care Provider] - 1-2 days
[2025-03-27] MEDS: IBUPROFEN 600 MG TAB PO STA (03:41)
[2025-03-27 03:47] VITALS: BP 110/79; PULSE 75; RESP 18; TEMP 98.1
--- NOTE | 2025-03-27 04:24 | XR ---
EXAM: XR Right Wrist Complete, 3 or More Views CLINICAL HISTORY: ITS.REASON XR Reason: Pain, ulnar aspect TECHNIQUE: Frontal, lateral and oblique views of the right wrist. COMPARISON: No relevant prior studies available. FINDINGS: Bones/joints: Unremarkable. No acute fracture. No dislocation. Soft tissues: Unremarkable. No radiopaque foreign body. IMPRESSION: No acute fracture.
== END 2025-03-27 03:47 | disposition home or self-care (01) ==
LOC: EC 02:12
DX: S63.501A Unspecified sprain of right wrist, initial encounter (principal); F17.290 Nicotine dependence, other tobacco product, uncomplicated; Z91.018 Allergy to other foods; X50.1XXA Overexertion from prolonged static or awkward postures, initial encounter
CPT/HCPCS: 99283

== ENCOUNTER → 2025-05-20 | Outpatient (CLI) | payer OTHER ==
[2025-05-20 13:54] VITALS: BP 120/80; PULSE 101; RESP 18; TEMP 98.1
--- NOTE | 2025-05-20 14:34 | P.SLEEP ---
History of Present Illness DATE: 05/20/2025 CONSULTATION/NEW PATIENT EVALUATION HISTORY OF PRESENT ILLNESS/SLEEP-WAKE EVALUATION: 29-year-old lady had been ev aluated in the sleep center for significant excessive daytime sleepiness and possible obstructive sleep apnea hypopnea syndrome. SLEEP SCHEDULE: Usually sleep schedule 3 AM until 9 AM on weekdays and until 11 AM on weekend. 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 FALLING ASLEEP: Patient has difficulties with falling asleep, although usually does not watch TV in bedroom. DURING SLEEP: Patient snores and has episodes of panic attacks, palpitations, heartburn, restless leg symptoms, sleep talking. Patient wakes up from sleep up to 4 times. Positive history of hypnogogical hallucinations and cataplexy. DURING THE DAY/WAKE STATE: In the morning patient wake up tired, has difficulties to pay attention, falling asleep during the day, has problems with memory, concentration. Franklin sleepiness scale is an extremely high range of 18. Sometimes patient takes naps, positive history of vivid hallucinations during naps. PAST MEDICAL HISTORY: PTSD, depression, anxiety, headaches, acid reflux legs, borderline personality disorder. PAST SURGICAL HISTORY: Finger separation at . MEDICATIONS: Bupropion, valacyclovir, Strattera, hydroxyzine, buspirone. SOCIAL HISTORY: Please see below. FAMILY HISTORY: Please see below. REVIEW OF SYSTEMS: Snoring, multiple awakenings from sleep, sleepiness during the day, hyper cortical hallucinations, cataplexy episodes. No fevers. No double vision. No recent chest pain. No shortness of breath. No abdominal pain. No bleeding episodes. No blood in urine. No seizure episodes. PHYSICAL EXAMINATION: GENERAL: A pleasant patient without any distress. VITAL SIGNS: Please see below, weight 230.2 pounds, BMI 41.2. HEENT: PERRLA, EOMI. Evaluation of oropharynx showed tongue protrudes midline, low position of soft palate Mallampati 23. NECK: Supple. No JVD. Thyroid is not palpable. 15.5 inches in circumference. LUNGS: Clear to percussion and to auscultation. Good air exchange. No wheezing or rhonchi. HEART: S1, S2 regular. No murmurs, gallops or rubs. ABDOMEN: Soft and nontender. Bowel sounds are present. No organomegaly appreciated. EXTREMITIES: No clubbing or cyanosis. AIDS SOCIAL WORKER: Awake, alert, and oriented x3. Cranial nerves 2 to 7 intact. There is no fasciculation or atrophy noted. No focal deficits observed. ASSESSMENT: 1. Snoring, multiple awakenings from sleep. Possible obstructive sleep apnea hypopnea syndrome. 2. Significant excessive daytime sleepiness with Franklin Sleepiness Scale 18, positive history of 5 negligible hallucinations, vivid dreams during naps, episodes of cataplexy. Differential diagnosis would include narcolepsy type I. 3. PTSD. 4. History of depression. 5 history of anxiety. 6 . Headaches. 7. Obesity. 8. 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 PLAN: 1. Polysomnography for evaluation of patient's breathing during sleep. MSLT if sleep study will be negative for obstructive sleep apnea hypopnea syndrome 2. Following plan after reading sleep study. 3. Preferable position during sleep on the side. 4. No driving if patient feels any sleepiness. Patient is aware of civil and criminal liability for unsafe driving. 5. Sleep hygiene with regular sleep time for at least 7.5-8 hours. 6. Watching and losing weight. Thank you very much for referring this patient for consultation. Sincerely, Doug De La Fuente MD, PhD, FAASM. Diplomat of [place] [employer], Sleep Medicine Board by [place] [employer] [place] [employer] Sleep [employer] G[place]ke cc: Ruben Duarte MD Past Medical History Past Medical History: Hearing Disorder / Deafness Additional Past Medical History / Comment(s): Hx tremors in whole body in 2021, was on Keto diet, resolved since quit Keto diet. Hx difficulty with speech/motor control issue about 1 1/2 yrs ago, no diagnosis. Tinnitus. History of Any Multi-Drug Resistant Organisms: None Reported Past Surgical History: Tubal Ligation Additional Past Surgical History / Comment(s): [place] teeth extracted, POTENTIAL PCOS AND/OR ADENOMYOSIS, FINGERS OF LEFT HAND AT (RING AND MIDDLE FINGER) Past Anesthesia/Blood Transfusion Reactions: No Reported Reaction Past Psychological History: ADD/ADHD, Anxiety, Depression, PTSD Additional Psychological History / Comment(s): ADHD, Borderline Personality Disorder. Smoking Status: Former smoker, Vaper Past Alcohol Use History: Rare Additional Past Alcohol Use History / Comment(s): Quit smoking in 2019, smoked since age 14, normally 1 pack per week, vaped for one year before quit smoking. Past Drug Use History: None Reported Additional Drug Use History / Comment(s): Hx Marijuana and CBD, none in couple month. - Past Family History Mother Family Medical History: Hyperlipidemia, Hypertension Additional Family Medical History / Comment(s): MASTECTOMY - NOT SURE THAT SHE HAD CANCER THOUGH, HX OF ALCOHOL USE. Father Family Medical History: Hyperlipidemia, Hypertension Additional Family Medical History / Comment(s): hISTORY OF DRUG AND ALCOHOL USE. Medications and Allergies Home Medications Medication Instructions Recorded Confirmed Type Atomoxetine HCl [Strattera] 80 mg PO HS 07/23/24 07/25/24 History Cholecalciferol [Vitamin D3 (25 25 mcg PO DAILY 07/23/24 07/25/24 History Mcg = 1000 Iu)] Lion's Mark (Unknown Dose) 1 tab PO DAILY 07/23/24 07/25/24 History Magnesium (Unknown Dose) 1 tab PO DAILY 07/23/24 07/25/24 History Melatonin [Melatonin Tr] 10 mg PO HS 07/23/24 07/25/24 History Pyridoxine HCl (Vitamin B6) 100 mg PO DAILY 07/23/24 07/25/24 History [Vitamin B-6] buPROPion [Wellbutrin] 100 mg PO 1330 07/23/24 07/25/24 History buPROPion [Wellbutrin] 200 mg PO QAM 07/23/24 07/25/24 History busPIRone HCL 10 mg PO BID 07/23/24 07/25/24 History guanFACINE [Tenex] 1 mg PO HS 07/23/24 07/25/24 History hydrOXYzine HCL 25 mg PO TID PRN 07/23/24 07/25/24 History traZODone HCL 100 mg PO HS 07/23/24 07/25/24 History Ibuprofen [Motrin] 600 mg PO Q8HR PRN #20 tab 03/27/25 Rx Allergies Allergy/AdvReac Type Severity Reaction Status Date / Time banana Allergy Itching Verified 03/27/25 02:20 pineapple Allergy Itching Verified 03/27/25 02:20 tree nut [Nut] Allergy Itching Verified 03/27/25 02:20 Physical Exam Vitals: Vital Signs Temp Pulse Resp BP Pulse Ox 05/20/25 13:52 98.1 F 101 H 18 120/80 97 Intake and Output 05/19/25 05/20/25 05/20/25 22:59 06:59 14:59 Other: Weight 104.383 kg Sleep Note - Sleep Data ESS Total: 18 - Sleep Note Sleep Note: Temperature: 98.1 F Pulse Rate: 101 Respiratory Rate: 18 Blood Pressure: 120/80 SpO2: 97 Height: 5 ft 2.2 in Weight: 104.383 kg BMI: Neck Circumference: 15.5
== END ==
LOC: 3 N SLEEP 13:39
PROVIDERS: ATTEND Internal Medicine
DX: G47.33 Obstructive sleep apnea (adult) (pediatric) (principal); R44.3 Hallucinations, unspecified; F43.10 Post-traumatic stress disorder, unspecified; F32.A Depression, unspecified; F41.9 Anxiety disorder, unspecified; R51.9 Headache, unspecified; E66.9 Obesity, unspecified; F17.200 Nicotine dependence, unspecified, uncomplicated; Z68.41 Body mass index [BMI] 40.0-44.9, adult; Z91.018 Allergy to other foods
CPT/HCPCS: 99211

== ENCOUNTER 2025-06-09 21:03 | Emergency (ER) | payer OTHER ==
[2025-06-09] MEDS: IBUPROFEN 800 MG TAB PO STA (21:34)
[2025-06-09] MEDS: LIDOCAINE 4% PATCH TOPICAL ONE (21:35)
--- NOTE | 2025-06-09 21:37 | ED ---
Back Pain HPI - General Chief Complaint: Back Pain/Injury Stated Complaint: Back Pain Time Seen by Provider: 06/09/25 21:30 Source: patient, RN notes reviewed Limitations: no limitations - History of Present Illness Initial Comments: 29-year-old female presenting for left lower back pain. States symptoms have been ongoing for the past 2 to 3 years however reports she was walking around the grocery store prior to arrival and began to feel a sharp pain in the left lower back which prompted her to seek evaluation in the ER. Denies injury or trauma. Denies urinary symptoms, fevers, or IV drug use. Denies chance of as she states she had her tubes tied last year. Denies bowel or bladder incontinence, saddle anesthesia. - Related Data Home Medications Medication Instructions Recorded Confirmed Atomoxetine HCl [Strattera] 80 mg PO HS 07/23/24 07/25/24 Cholecalciferol [Vitamin D3 (25 25 mcg PO DAILY 07/23/24 07/25/24 Mcg = 1000 Iu)] [place] (Unknown Dose) 1 tab PO DAILY 07/23/24 07/25/24 Magnesium (Unknown Dose) 1 tab PO DAILY 07/23/24 07/25/24 Melatonin [Melatonin Tr] 10 mg PO HS 07/23/24 07/25/24 Pyridoxine HCl (Vitamin B6) 100 mg PO DAILY 07/23/24 07/25/24 [Vitamin B-6] buPROPion [Wellbutrin] 100 mg PO 1330 07/23/24 07/25/24 buPROPion [Wellbutrin] 200 mg PO QAM 07/23/24 07/25/24 busPIRone HCL 10 mg PO BID 07/23/24 07/25/24 guanFACINE [Tenex] 1 mg PO HS 07/23/24 07/25/24 hydrOXYzine HCL 25 mg PO TID PRN 07/23/24 07/25/24 traZODone HCL 100 mg PO HS 07/23/24 07/25/24 Previous Rx's Medication Instructions Recorded Ibuprofen [Motrin] 600 mg PO Q8HR PRN #20 tab 03/27/25 Lidocaine 4% Patch 1 patch TOPICAL DAILY PRN 7 Days 06/09/25 #7 patch Allergies Allergy/AdvReac Type Severity Reaction Status Date / Time banana Allergy Itching Verified 06/09/25 21:10 pineapple Allergy Itching Verified 06/09/25 21:10 tree nut [Nut] Allergy Itching Verified 06/09/25 21:10 amitriptyline AdvReac Rapid Verified 06/09/25 21:11 Heart Rate Review of Systems ROS Statement: Those systems with pertinent positive or pertinent negative responses have been documented in the HPI. ROS Other: All systems not noted in ROS Statement are negative. Past Medical History Past Medical History: Hearing Disorder / Deafness Additional Past Medical History / Comment(s): Hx tremors in whole body in 2021, was on Keto diet, resolved since quit Keto diet. Hx difficulty with speech/motor control issue about 1 1/2 yrs ago, no diagnosis. Tinnitus. PCOS History of Any Multi-Drug Resistant Organisms: None Reported Past Surgical History: Tubal Ligation Additional Past Surgical History / Comment(s): [place] teeth extracted, POTENTIAL PCOS AND/OR ADENOMYOSIS, FINGERS OF LEFT HAND AT (RING AND MIDDLE FINGER) Past Anesthesia/Blood Transfusion Reactions: No Reported Reaction Past Psychological History: ADD/ADHD, Anxiety, Depression, PTSD Smoking Status: Former smoker Past Alcohol Use History: Rare Past Drug Use History: None Reported - Past Family History Mother Family Medical History: Hyperlipidemia, Hypertension Additional Family Medical History / Comment(s): MASTECTOMY - NOT SURE THAT SHE HAD CANCER THOUGH, HX OF ALCOHOL USE. Father Family Medical History: Hyperlipidemia, Hypertension Additional Family Medical History / Comment(s): hISTORY OF DRUG AND ALCOHOL USE. General Exam Limitations: no limitations General appearance: alert, in no apparent distress Head exam: Present: atraumatic, normocephalic, normal inspection Eye exam: Present: normal appearance, PERRL, EOMI. Absent: scleral icterus, conjunctival injection, periorbital swelling GI/Abdominal exam: Present: soft, normal bowel sounds. Absent: distended, tenderness, guarding, rebound, rigid Back exam: Present: normal inspection, full ROM, tenderness (Mild reproducible tenderness to left lumbar area), paraspinal tenderness, other (Full strength and range of motion of bilateral hips, no saddle anesthesia, full sensation and DP pulses bilaterally). Absent: CVA tenderness (R), CVA tenderness (L), vertebral tenderness Neurological exam: Present: alert, oriented X3 Psychiatric exam: Present: normal affect, normal mood Skin exam: Present: warm, dry, intact, normal color. Absent: rash Course Vital Signs 06/09/25 06/09/25 21:04 22:20 Temperature 98.7 F 98.4 F Pulse Rate 103 H 91 Respiratory 18 19 Rate Blood Pressure 129/87 121/78 O2 Sat by Pulse 98 97 Oximetry Medical Decision Making - Medical Decision Making Was pt. sent in by a medical professional or institution (, PA, [facility], urgent care, hospital, or half-way...) When possible be specific @ -No Did you speak to anyone other than the patient for history (EMS, parent, family, police, friend...)? What history was obtained from this source @ -No Did you review nursing and triage notes (agree or disagree)? Why? @ -I reviewed and agree with nursing and triage notes Were old charts reviewed (outside hosp., previous admission, EMS record, old EKG, old radiological studies, urgent care reports/EKG's, half-way records)? Report findings @ -No old charts were reviewed Differential Diagnosis (chest pain, altered mental status, abdominal pain women, abdominal pain men, vaginal bleeding, weakness, fever, dyspnea, syncope, hea dache, dizziness, GI bleed, back pain, seizure, CVA, palpatations, mental health, musculoskeletal)? @ -Differential Back Pain: Strain, zoster, cauda equina syndrome, epidural abscess, vertebral osteo myelitis, discitis, fracture, subluxation, disc herniation, DJD, spinal stenosis, dissection, AAA, pancreatitis, peptic ulcer disease, pyelonephritis, kidney stone, this is not meant to be an all-inclusive list. EKG interpreted by me (3pts min.). @ -None X-rays interpreted by me (1pt min.). @ -X-ray lumbar spine reveals no acute process CT interpreted by me (1pt min.). @ -None done U/S interpreted by me (1pt. min.). @ -None done What testing was considered but not performed or refused? (CT, X-rays, U/S, labs)? Why? @ -None What meds were considered but not given or refused? Why? @ -None Did you discuss the management of the patient with other professionals (professionals i.e. , ROBERTO CARLOS, V[employer], lab, RT, psych nurse, social research assistant, criminal justice lawyer, teacher, control officer manager, window caser)? Give summary @ -No Was smoking cessation discussed for >3mins.? @ -No Was critical care preformed (if so, how long)? @ -No Were there social determinants of health that impacted care today? How? (Homelessness, low income, unemployed, alcoholism, drug addiction, transportation, low edu. Level, literacy, decrease access to med. care, custodial, rehab)? @ -No Was there de-escalation of care discussed even if they declined (Discuss DNR or withdrawal of care, Hospice)? DNR status @ -No What co-morbidities impacted this encounter? (DM, HTN, Smoking, COPD, CAD, Cancer, CVA, ARF, Chemo, Hep., AIDS, mental health diagnosis, sleep apnea, morbid obesity)? @ -None Was patient admitted / discharged? Hospital course, mention meds given and route, prescriptions, significant lab abnormalities, going to OR and other pertinent info. @ -Discharge. 29-year-old female presenting for atraumatic left lower back pain. No red flag symptoms. Neurovascularly intact. Provided with dose of ibuprofen. X-ray lumbar spine reveals no acute process. Urinalysis negative. Urine negative. Discussed negative results with patient. Appropriate return parameters and supportive care discussed. Advised to follow-up with PCP for chronic back pain. Case was discussed with the ED attending Dr. Downing. Undiagnosed new problem with uncertain prognosis? @ -No Drug Therapy requiring intensive monitoring for toxicity (Heparin, Nitro, Insulin, Cardizem)? @ -No Were any procedures done? @ -No Diagnosis/symptom? @ -Low back pain Acute, or Chronic, or Acute on Chronic? @ -Acute Uncomplicated (without systemic symptoms) or Complicated (systemic symptoms)? @ -Uncomplicated Side effects of treatment? @ -No Exacerbation, Progression, or Severe Exacerbation? @ -No Poses a threat to life or bodily function? How? (Chest pain, [place], [place], pneumonia, PE, COPD, DKA, ARF, appy, cholecystitis, CVA, Diverticulitis, Homicidal, Suicidal, threat to staff... and all critical care pts) @ -No - Lab Data Lab Results 06/09/25 06/09/25 Range/Units 21:32 21:32 Urine Color Light Yellow Urine Appearance Cloudy H (Clear) Urine pH 6.0 (5.0-8.0) Ur Specific [place] 1.010 (1.001-1.035) Urine Protein Negative (Negative) Urine Glucose (UA) Negative (Negative) Urine Ketones Negative (Negative) Urine Blood Negative (Negative) Urine Nitrite Negative (Negative) Urine Bilirubin Negative (Negative) Urine Urobilinogen <2.0 (<2.0) mg/dL Ur Leukocyte Esterase Negative (Negative) Urine RBC 2 (0-5) /hpf Urine WBC 3 (0-5) /hpf Ur Squamous Epith Cells 10 H (0-4) /hpf Urine Bacteria Rare H (None) /hpf Urine Mucus Occasional H (None) /hpf Urine HCG, Qual Not Detected (Not Detectd) Disposition Clinical Impression: Low back pain Disposition: HOME SELF-CARE Condition: Stable Instructions (If sedation given, give patient instructions): Back Pain (ED) Additional Instructions: Take ibuprofen and use lidocaine patches as needed for pain. Please follow-up with your PCP as discussed. Please return to the Emergency Department if symptoms worsen or any other concerns. Prescriptions: Lidocaine 4% Patch 1 patch TOPICAL DAILY PRN 7 Days #7 patch PRN Reason: Pain Is patient prescribed a controlled substance at d/c from ED?: No Referrals: Ruben Duarte MD [Primary Care Provider] - 1-2 days Time of Disposition: 22:46
[2025-06-09 21:47] LABS: Bacteria,Urine Rare /hpf; Bilirubin,Urine Negative (Negative); Blood,Urine Negative (Negative); Color,Urine Light Yellow; Glucose,Urine (UA) Negative (Negative); Ketones,Urine Negative (Negative); Leukocyte Esterase,Urine Negative (Negative); Mucus,Urine Occasional /hpf; Nitrite,Urine Negative (Negative); PH, Urine 6.0 (5.0-8.0); Protein,Urine Negative (Negative); RBC,Urine 2 /hpf (0-5); Specific Gravity,Urine 1.010 (1.001-1.035); Squamous Epithelial Cell,Urine 10 /hpf (0-4); Urobilinogen,Urine <2.0 mg/dL (<2.0); WBC,Urine 3 /hpf (0-5)
--- NOTE | 2025-06-09 21:57 | XR ---
EXAMINATION TYPE: XR lumbar spine 2 or 3V DATE OF EXAM: 06/09/2025 9:45 PM COMPARISON: 12/22/2021 CLINICAL INDICATION: Female, 29 years old with history of low back pain, pain TECHNIQUE: 3 view(s) obtained. FINDINGS: There are 5 lumbar-type vertebral bodies. Pedicles are intact. Disc heights are preserved. Vertebral body heights are preserved. IMPRESSION: 1. Unremarkable three-view lumbar spine [facility], Workstation: [facility], 06/09/2025 9:54 PM
[2025-06-09 22:21] VITALS: BP 121/78; PULSE 91; RESP 19; TEMP 98.4
== END 2025-06-09 23:30 | disposition home or self-care (01) ==
LOC: EC 21:03
DX: M54.50 Low back pain, unspecified (principal); Z87.891 Personal history of nicotine dependence; Z91.018 Allergy to other foods; Z88.8 Allergy status to other drugs, medicaments and biological substances
CPT/HCPCS: 72100; 81001; 81025; 99284